=== PATIENT | female | born 1990 | race Caucasian/White ===

== ENCOUNTER 2021-08-22 12:25 | Outpatient (CLI) | payer BC, OTHER, SELFPAY | END 2021-08-22 23:59 | disposition short-term general hospital (02) | LOC: LABSPEC 12:30 | PROVIDERS: Visit Provider Obstetrics & Gynecology | DX: R35.0 Frequency of micturition (principal) | CPT/HCPCS: 87086 ==

== ENCOUNTER 2021-09-10 08:30 | Outpatient (CLI) | payer OTHER, SELFPAY ==
[2021-09-10 09:14] LABS: Absolute Lymphocyte Count 2.63 X10^3/uL (0.83-4.51); Absolute Neutrophil Count 8.7 X10^3/uL (2.0-7.7); Basophil# 0.05 X10^3/uL; Basophil% 0.4 % (0-1); Eosinophil# 0.22 X10^3/uL; Eosinophils% 1.8 % (0-5); Hematocrit 37.9 % (37-47); Hemoglobin 13.4 g/dL (12.0-15.0); Lymphocyte # 2.63 X10^3/ul (0.83-4.51); Lymphocyte % 21.1 % (19-41); Mean Corp Hgb Conc 35.4 g/dL (32-36); Mean Corpuscular Hgb 31.5 pg (27.0-32.0); Mean Corpuscular Volume 89.2 fL (81-99); Mean Platelet Vol. 9.8 fl (6.2-12.0); Monocyte# 0.76 X10^3/uL; Monocyte% 6.1 % (0-10); NRBC Flagged by Analyzer 0 % (0-5); Neutrophil # 8.66 X10^3/uL (2.7-7.7); Neutrophil % 69.4 % (47-70); Platelet Count 228 K/mm3 (150-450); RBC Distribution Width CV 12.6 % (11.6-14.6); RBC Distribution Width SD 40.6 fl (35.1-43.9); Red Blood Count 4.25 M/mm3 (4.2-5.4); White Blood Count 12.5 K/mm3 (4.4-11.0)
[2021-09-10 09:40] LABS: Glucose Challenge Gest 1H 50g 135 mg/dL (70-140)
== END 2021-09-10 23:59 | disposition short-term general hospital (02) ==
LOC: PAVLAB 08:33
PROVIDERS: Referring Provider Obstetrics & Gynecology; Visit Provider Obstetrics & Gynecology
DX: O09.00 Supervision of pregnancy with history of infertility, unspecified trimester (principal); Z3A.00 Weeks of gestation of pregnancy not specified
CPT/HCPCS: 36415; 82950; 85025

== ENCOUNTER 2021-11-14 12:11 | Outpatient (CLI) | payer OTHER, SELFPAY ==
--- NOTE | 2021-11-14 12:12 | US_ITS ---
STUDY: SECOND AND THIRD TRIMESTER OBSTETRICAL ULTRASOUND - LIMITED REASON FOR EXAM: Female, 31 years old growth @ 36 weeks LMP: 03/08/2022 PRIOR ULTRASOUND: None. TECHNIQUE: TECHNICAL QUALITY: Adequate. FINDINGS: There is a single intrauterine fetus. The fetus is in a cephalic presentation. There is demonstrated cardiac activity with a heart rate of 144 bpm. There is a normal amniotic fluid volume. The largest amniotic fluid pocket measures 8.19 cm. The amniotic fluid index (CARA) is 18.71 cm. The placenta is anterior in location and is not low lying. There are Grade 2 placental changes. The cervix measures 3.9 cm in length. BIOMETRY: BPD: 8.53 cm: 34 weeks, 2 days HC: 31.51 cm: 35 weeks, 1 days AC: 32.30 cm: 36 weeks, 1 days FL: 6.61 cm: 34 weeks, 0 days Age by LMP: 35 weeks, 6 days. SOLITARIO by LMP: 12/13/2021. age by current US: 34 weeks, 6 days. SOLITARIO by current US: 12/20/2021. Estimated weight: 2676 grams, +/- 401 grams, 39 percentile. US/OB Limited With Biometrics IMPRESSION: Single live intrauterine at 34 weeks, 6 days by current ultrasound SOLITARIO of 12/20/2021. Heart rate at 144 bpm. No suspicious sonographic findings Electronically Signed: Derek Mendiola MD at 9:44 EDT ,
== END 2021-11-14 23:59 | disposition home or self-care (01) ==
LOC: US 12:11
PROVIDERS: Referring Provider Obstetrics & Gynecology; Visit Provider Obstetrics & Gynecology
DX: E03.9 Hypothyroidism, unspecified (principal); E78.5 Hyperlipidemia, unspecified; M85.80 Other specified disorders of bone density and structure, unspecified site
CPT/HCPCS: 76816

== ENCOUNTER 2021-11-21 09:14 | Outpatient (CLI) | payer OTHER, SELFPAY | END 2021-11-21 23:59 | disposition home or self-care (01) | LOC: LABSPEC 11-22 09:15 | PROVIDERS: Visit Provider Obstetrics & Gynecology | DX: O09.90 Supervision of high risk pregnancy, unspecified, unspecified trimester (principal) | CPT/HCPCS: 87081 ==

== ENCOUNTER 2021-11-24 11:10 | Outpatient (CLI) | payer OTHER, SELFPAY ==
[2021-11-24 11:49] VITALS: BMI 34.3
[2021-11-24 13:22] VITALS: BP 118/83; TEMP 36.8
[2021-11-24 13:23] VITALS: BP 118/83; PULSE 85
--- NOTE | 2021-11-24 14:21 | OB.TRI.PN_ITS ---
Progress Notes Date of Service: 11/24/21 Progress Note: Patient presents for triage evaluation secondary to contractions FHT: 140 Moderate variability reactive no decelerations category I tracing [place]: q8-10 Contractions Assessment and plan: false labor Reactive NST, reassuring maternal and status patient discharged to home to follow-up as scheduled. See problem list details for additional plan information. Charges/Coding Procedures Urinary/Genital [id number]: [id number] non-stress test Interp
== END 2021-11-24 13:45 | disposition home or self-care (01) ==
LOC: WPOUT 11:18 → WP 11:19
PROVIDERS: Visit Provider Obstetrics & Gynecology
DX: O47.9 False labor, unspecified (principal); Z3A.00 Weeks of gestation of pregnancy not specified
CPT/HCPCS: 59025; 59050; 99218; G0378

== ENCOUNTER 2021-12-12 11:30 | Inpatient (IN) | payer OTHER, SELFPAY ==
[2021-12-12] VITALS (57 sets, daily range): BP systolic 100–180; BP diastolic 58–127; PULSE 82–113; TEMP 36.4–37.6; O2SAT 97–100; BMI 38.0
[2021-12-12] MEDS: oxyCODONE 5 MG Tablet PO (03:36)
[2021-12-12] MEDS: Lactated Ringers 1,000 ML 999 ML IV ×2 (05:23→11:35)
[2021-12-12 05:35] LABS: Absolute Neutrophil Count 9.7 X10^3/uL (2.0-7.7); Basophil# 0.05 X10^3/uL; Basophil% 0.4 % (0-1); Eosinophil# 0.21 X10^3/uL; Eosinophils% 1.5 % (0-5); Hematocrit 41.8 % (37-47); Hemoglobin 14.1 g/dL (12.0-15.0); Lymphocyte % 17.5 % (19-41); Mean Corp Hgb Conc 33.7 g/dL (32-36); Mean Corpuscular Hgb 30.7 pg (27.0-32.0); Mean Corpuscular Volume 91.1 fL (81-99); Mean Platelet Vol. 10.5 fl (6.2-12.0); Monocyte# 1.09 X10^3/uL; NRBC Flagged by Analyzer 0 % (0-5); Neutrophil # 9.74 X10^3/uL (2.7-7.7); Neutrophil % 71.1 % (47-70); Platelet Count 216 K/mm3 (150-450); RBC Distribution Width CV 12.5 % (11.6-14.6); RBC Distribution Width SD 40.7 fl (35.1-43.9); Red Blood Count 4.59 M/mm3 (4.2-5.4); White Blood Count 13.7 K/mm3 (4.4-11.0)
[2021-12-12] MEDS: fentaNYL 100 MCG/2 ML Ampul 50 MCG IV (05:35)
[2021-12-12 05:59] LABS: Fibrinogen 499 mg/dl (203-444)
[2021-12-12 12:02] LABS: Absolute Lymphocyte Count 1.97 X10^3/uL (0.83-4.51); Absolute Neutrophil Count 12.6 X10^3/uL (2.0-7.7); Basophil# 0.06 X10^3/uL; Basophil% 0.4 % (0-1); Eosinophil# 0.12 X10^3/uL; Eosinophils% 0.8 % (0-5); Hematocrit 42.1 % (37-47); Hemoglobin 14.5 g/dL (12.0-15.0); Lymphocyte # 1.97 X10^3/ul (0.83-4.51); Lymphocyte % 12.5 % (19-41); Mean Corp Hgb Conc 34.4 g/dL (32-36); Mean Corpuscular Hgb 30.9 pg (27.0-32.0); Mean Corpuscular Volume 89.8 fL (81-99); Monocyte# 0.86 X10^3/uL; Monocyte% 5.4 % (0-10); NRBC Flagged by Analyzer 0 % (0-5); Neutrophil # 12.59 X10^3/uL (2.7-7.7); Neutrophil % 79.6 % (47-70); Platelet Count 221 K/mm3 (150-450); RBC Distribution Width CV 12.5 % (11.6-14.6); RBC Distribution Width SD 40.6 fl (35.1-43.9); Red Blood Count 4.69 M/mm3 (4.2-5.4); White Blood Count 15.8 K/mm3 (4.4-11.0)
[2021-12-12] MEDS: fentaNYL-bupivacaine (epidural) 100 ML BAG EPIDURAL ×3 (12:42→22:23)
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
[2021-12-12] MEDS: Lactated Ringers 1,000 ML 200 ML IV ×4 (13:44→21:40)
[2021-12-12] MEDS: Oxytocin 30 units/NS 500 ml 30 UNITS/500 ML IV.SOLN IV (15:18)
[2021-12-12] MEDS: Ondansetron 4 MG/2 ML Vial IV (19:29)
[2021-12-12 19:50] LABS: Hepatitis C Antibody Non-Reactive (Nonreactive)
[2021-12-13] VITALS (21 sets, daily range): BP systolic 98–121; BP diastolic 54–74; PULSE 85–115; RESP 16–18; TEMP 36.8–37.7; O2SAT 92–99
[2021-12-13] MEDS: Oxytocin 30 units/NS 500 ml 30 UNITS/500 ML IV.SOLN 334 UNITS IV (02:02)
--- NOTE | 2021-12-13 02:25 | OP.PCM_ITS ---
Maternal Data Information SOLITARIO Calculator Estimated Delivery Date Method Current Current Estimate 12/13/21 Manual 40w 0d Vaginal Delivery Maternal Presentation Maternal Presentation: Active Labor Type of Induction: Pitocin Operative Information Date of Procedure: 12/13/21 Pre-Operative Diagnosis: 40 weeks , active labor, meconium stained amniotic fluid Post-Operative Diagnosis: 40 weeks , active labor , meconium stained amniotic fluid Surgery / Procedure Performed: Spontaneous Vaginal Delivery Type of Anesthesia: Epidural Estimated Blood Loss: 200cc Findings Description of Procedure: Patient began pushing and delivered the head in the JENNI presentation. The head was delivered atraumatically. The anterior and posterior shoulders delivered without complication followed by the rest of the and the was placed on the maternal abdomen. Delayed cord clamping was employed for approximately 60 seconds. Cord was clamped and cut and gentle traction was applied to the cord and the placenta delivered spontaneously immediately following it was noted to be intact with three-vessel cord. The perineum and vagina were inspected and noted to have a small vaginal laceration on the right sidewall that was repaired with a 3-0 vicryl rapide suture. EBL was 200cc. Patient and tolerated delivery well. Presentation: Vertex and JENNI Amniotic Membrane Rupture Type: Spontaneous Amniotic Fluid Description: Moderate meconium Placental Delivery Description: Spontaneous Placenta Disposition: [facility] Cord Vessel Description: 3 Vessels Cord Entanglement: None Infant A Gender: Male (1 minute): 8 (5 minute): 9 Delayed Cord Clamping: Yes Post Vaginal Delivery Medications Given After Delivery: IV Pitocin Episiotomy Description: None Laceration: Vaginal Extension/lac Complication Complications: None Multi Select Codes Urinary/Genital Urinary/Genital CPT Codes: 02472 Vaginal Delivery [facility]
[2021-12-13] MEDS: Acetaminophen 500 MG Tablet 1000 MG PO ×2 (02:52→21:30)
[2021-12-13] MEDS: Ibuprofen 600 MG Tablet PO ×2 (12:04→19:40)
[2021-12-13] MEDS: Prenatal Vits Tablet 1 TABLET PO (12:05)
--- NOTE | 2021-12-13 19:55 | NURSING ---
fob reports sore throat and not feeling well today. reports feeling hot and sweaty. fob went home for the night due to symptoms. mother denies symptoms, rapid covid test collected since not tested upon admission. mother encouraged to continue with good hand washing-verbalized understanding
[2021-12-14 01:20] VITALS: BP 106/85; PULSE 86; RESP 16; TEMP 36.4; O2SAT 97
[2021-12-14 01:22] VITALS: BP 106/65; PULSE 83
--- NOTE | 2021-12-14 07:46 | PCM.PN.OB ---
Subjective Subjective Patient doing well without complaints. Tolerating PO. Ambulating and voiding without difficulty. Feeding well. Denies chest pain, shortness of breath, calf pain/swelling, fevers, chills, lightheadedness. Her baby is being transported to [facility] due to failing heart screen x 3 and requiring 02. She would like to be discharged. Objective Data Objective Data Vital Signs: Vital Signs Temp Pulse Resp BP Pulse Ox 97.6 F L 83 16 106/65 97 12/14/21 01:20 12/14/21 01:22 12/14/21 01:20 12/14/21 01:22 12/14/21 01:20 Oxygen Delivery Method Room Air Weight: 188 lb 6.4 oz Body Mass Index (BMI) 38.0 Intake & Output: Intake and Output for Last 24 Hours 12/12/21 12/13/21 12/14/21 23:59 23:59 23:59 Intake Total 5707.11 / 5707.11 1387.86 / 1387.86 Output Total 600 / 600 2200 / 2200 Balance 5107.11 / 5107.11 -812.14 / -812.14 Lab / Micro Data Result Diagrams: 12/12/21 11:35 Micro: Microbiology 12/13/21 19:42 Nasal Secretion SARS-CoV-2 Antigen (Rapid) - Final ROS Constitutional Constitutional: Denies chills, fatigue, fever(s), poor appetite or weakness Eyes Eyes: Denies blurry vision, change in vision, seeing flashes or spots in vision ENT HEENT: Denies dizziness, headache(s), loss taste/smell or sore throat Cardiovascular Cardiovascular: Denies chest pain, dizziness, dyspnea, irregular heart rhythm, palpitations or rapid heart rate Respiratory/Chest Respiratory/Chest: Denies chest tightness, cough, dyspnea or breast pain Gastrointestinal Gastrointestinal: Denies abdominal pain, constipation or vomiting Genitourinary Genitourinary: Denies dysuria or flank pain Musculoskeletal Musculoskeletal: Denies difficulty walking, joint pain, limited range of motion or numbness Neurologic Neurologic: Denies abnormal movements, abnormal speech, dizziness, numbness, seizure-like activity or syncope Psychiatric Psychiatric: Denies anxiety, behavioral changes, change in appetite, confusion, depression or suicidal thoughts Physical Exam Const alert, oriented x3 and no apparent distress General Appearance: cooperative and comfortable Resp normal respiratory effort Cardio regular rate GI normal to inspection, nondistended, normoactive bowel sounds GI Narrative: uterus is firm below umbilicus Palpation: soft Back/Spine no CVA tenderness and thoraco-lumbar ROM normal Extremity normal to inspection, no clubbing, cyanosis or edema, no calf tenderness and no pedal edema Psych mental status grossly normal, thought process normal, cooperative, affect normal, speech normal, activity/motor behavior normal, denies homicidal ideation and denies suicidal ideation Assessment & Plan (1) Status post vaginal delivery: COMMENT: baby vito Retana- JV transported to [facility] PLAN: s/p PPD # 1 1. routine post delivery care for now and discharge when baby is sent to [facility]. rx's sent to [facility]. follow up in 6 weeks or sooner as needed. 2. breast feeding- support given 3. rh positive 4. rubella immune
--- NOTE | 2021-12-14 07:50 | PCM.DC ---
Discharge Instructions Diet Discharge Diet: No restrictions Activity Discharge Activity: Return to Normal Activity, May Not Drive (while taking narcotic pain medications.) and May Shower May resume sexual activity in: 4-6 weeks Dressing / Incision Call your doctor if your incision/area has: Continuous Slow Oozing, Sudden Increased Bleeding, Increased Pain/ Swelling, Increased Redness and Foul Smelling Discharge Follow Up Care Please Follow Up With: Jennifer Matta DO When: Call [phone] to make an appointment with your doctor in 6 weeks. If you had elevated blood pressure or 4th degree laceration, you will need to be seen in 2 weeks. Test Results: Test results from this visit will be discussed in further detail at your follow-up appointment, if applicable. Discharge Plan Admission Admit Date/Time: 12/12/21 11:30 Primary Reason for Your Visit: vaginal delivery Attending Provider: Jennifer Matta Primary Care Provider: Gianni Physician,No Primary Instructions Patient Instructions: After a Vaginal Additional Instructions / Restrictions: Discharge Orders/Prescriptions Prescriptions: New ibuprofen 800 mg tablet 800 mg PO Q8H PRN (Reason: pain) 7 Days Qty: 30 RF: 0 Continued PNV-DHA 27 mg iron-1 mg -300 mg capsule 1 cap PO DAILY RF: 0 Referrals / Follow Up: Care Physician,No Primary [Primary Care Provider] - Disposition Disposition (needs filled in before D/C Order can be placed): Home, Self Care
--- NOTE | 2021-12-14 07:58 | NURSING ---
Patient feeding plan is to breastfeed for 1 week and then transition to formula. Formula education provided.
[2021-12-14 08:13] VITALS: BP 114/72; PULSE 96
[2021-12-14 08:14] VITALS: BP 114/72; PULSE 107; RESP 16; TEMP 37; O2SAT 98
--- NOTE | 2021-12-18 15:22 | NURSING ---
on follow up phone call mother still breast feeding. was going to switch to formula but has not at this time. mother encouraged and offered support.
== END 2021-12-14 08:30 | disposition home or self-care (01) | DRG 807 ==
LOC: WPOUT 11:47 → WP 13:38
PROVIDERS: Obstetrics & Gynecology; Admitting Provider Obstetrics & Gynecology; Visit Provider Obstetrics & Gynecology
DX: O48.0 Post-term pregnancy (principal); Z37.0 Single live birth; O26.23 Pregnancy care for patient with recurrent pregnancy loss, third trimester; F41.9 Anxiety disorder, unspecified; O77.0 Labor and delivery complicated by meconium in amniotic fluid; O99.344 Other mental disorders complicating childbirth; Z3A.40 40 weeks gestation of pregnancy; Z87.42 Personal history of other diseases of the female genital tract
CPT/HCPCS: 36415; 59025; 59050; 85025; 85384; 86803; 86850; 86900; 86901; 87426; 99218; J7120; G0378; J2405

== ENCOUNTER → 2022-01-21 | Outpatient (CLI) | payer OTHER, SELFPAY ==
[2022-01-27 15:22] LABS: HPV APTIMA, High Risk Negative (Negative)
== END | disposition home or self-care (01) ==
LOC: LABSPEC 01-22 08:35
PROVIDERS: Visit Provider Obstetrics & Gynecology
DX: Z12.4 Encounter for screening for malignant neoplasm of cervix (principal)
CPT/HCPCS: 87624; 88175; G0145

== ENCOUNTER → 2024-01-17 | Outpatient (CLI) | payer MEDICAID, SELFPAY ==
--- NOTE | 2024-01-17 12:37 | US_ITS ---
STUDY: ULTRASOUND OF THE FEMALE PELVIS - COMPLETE REASON FOR EXAM: Female, 33 years old. Pain, bleeding w/IUD LMP: Unknown. TECHNIQUE: Transabdominal and Transvaginal TECHNICAL QUALITY: Adequate. COMPARISON: None. FINDINGS: The uterus is anteverted and is in a midline position. The uterus measures 7.9 cm x 4.7 cm x 2.7 cm. Normal uterine cervix. The endometrium measures 3 mm in thickness, and is hyperechoic. There is no demonstrated endometrial mass. There is no demonstrated myometrial mass. I.U.D. - The patient does not have an I.U.D.. The IUD is within the fundal portion of uterus. The right ovary is visualized. The right ovary measures 2.2 cm x 1.7 cm x 1.3 cm. There is no right ovarian cyst or ovarian mass. There is no visualized right adnexal mass or complex lesion. There is normal arterial and normal venous vascularity. The left ovary is visualized. The left ovary measures 4.9 cm x 4.9 cm x 4.3 cm. There is a 4.8 cm x 4.5 cm x 4 cm left ovarian cyst. There is no visualized left adnexal mass or complex lesion. There is normal arterial and normal venous vascularity. There is no fluid in the cul-de-sac. The pre void volume of the bladder was 146 ml. US/Pelvic w/ Transvaginal IMPRESSION: IUD is seen within the fundal portion of the endometrium. Left ovarian cyst. Electronically Signed: Bakari Castro MD at 15:40 EDT ,
== END | disposition home or self-care (01) ==
LOC: US 12:35
PROVIDERS: Referring Provider Nurse Practitioner Women's Health; Visit Provider Nurse Practitioner Women's Health
DX: R10.2 Pelvic and perineal pain (principal); N93.9 Abnormal uterine and vaginal bleeding, unspecified; Z97.5 Presence of (intrauterine) contraceptive device
CPT/HCPCS: 76830; 76856

== ENCOUNTER → 2024-03-06 | Outpatient (CLI) | payer MEDICAID, SELFPAY ==
--- NOTE | 2024-03-06 11:23 | US_ITS ---
STUDY: ULTRASOUND OF THE FEMALE PELVIS - COMPLETE REASON FOR EXAM: Female, 34 years old. Ovarian cyst follow up LMP: August 09, 2021. TECHNIQUE: Transvaginal TECHNICAL QUALITY: Adequate. COMPARISON: Comparison is made with prior study dated January 17, 2024. FINDINGS: The uterus is anteverted and is in a midline position. The uterus measures 7.7 cm x 4.2 cm x 2.7 cm. Normal uterine cervix. The endometrium measures 3.2 mm in thickness, and is hyperechoic. There is no demonstrated endometrial mass. There is no demonstrated myometrial mass. I.U.D. - The patient does have an I.U.D.. The IUD is seen in the fundal portion of the uterus. The right ovary is visualized. The right ovary measures 2.9 cm x 2.5 cm x 1.5 cm. There is no right ovarian cyst or ovarian mass. There is no visualized right adnexal mass or complex lesion. There is normal arterial and normal venous vascularity. The left ovary is visualized. The left ovary measures 3.1 cm x 3.1 cm x 1.5 cm. There is a residual 2 cm x 1.9 cm x 0.9 cm left ovarian cyst. This has decreased in size as compared to prior study. There is no visualized left adnexal mass or complex lesion. There is normal arterial and normal venous vascularity. There is no fluid in the cul-de-sac. US/Transvaginal Non- IMPRESSION: Interval decrease in size of the left ovarian cyst. It presently measures 2 cm x 1.9 cm x 0.9 cm. IUD is seen within the fundal portion of the endometrium. Electronically Signed: Bakari Castro MD at 14:09 EDT ,
== END | disposition home or self-care (01) ==
LOC: US 11:22
PROVIDERS: Referring Provider Advanced Practice Midwife; Visit Provider Advanced Practice Midwife
DX: N83.209 Unspecified ovarian cyst, unspecified side (principal)
CPT/HCPCS: 76830

== ENCOUNTER → 2025-08-06 | Outpatient (CLI) | payer MEDICAID, BC, SELFPAY ==
[2025-08-07 21:07] LABS: HPV APTIMA, High Risk Negative (Negative)
== END | disposition home or self-care (01) ==
LOC: LABSPEC 12:13
PROVIDERS: Visit Provider Nurse Practitioner Family
DX: Z12.4 Encounter for screening for malignant neoplasm of cervix (principal)
CPT/HCPCS: 87624; 88175; G0145